=== PATIENT | male | born 1990 | race Caucasian/White ===

== ENCOUNTER 2016-02-28 18:44 | Emergency (ER) | payer SELFPAY ==
[~2016-02-28] VITALS: Ht 170.2 cm; Wt 66.3 kg
[~2016-02-28 18:44] MED LIST: Z.0.NO CURRENT MEDS
[2016-02-28 18:56] VITALS: BP 123/83; PULSE 96; RESP 16; TEMP 98.2; O2SAT 99
[2016-02-28] MEDS ORDERED: ERYTOIN10 RIGHT EYE (19:37)
[2016-02-28] MEDS ORDERED: IBUP800T23 PO (19:37)
--- NOTE | 2016-02-28 19:38 | PD ---
HPI Chief Complaint: Foreign Body Time Seen by Provider: 19:35 Travel History International Travel<30 days: No Contact w/Intl Traveler<30days: No Traveled to known affect area: No History of Present Illness HPI 25-year-old male presents to the emergency Department with complaint of a foreign body in his right eye. 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 He tried getting out earlier but hasn't come out. Denies fever, chills, nausea, vomiting. Reports vision is blurry. Reports clear drainage from his eye. Eyes painful. Has not taken any medications to alleviate his symptoms. Allergic to Darvocet. Denies significant past medical history. No other modifying factors or associated signs and symptoms. PFSH Past Medical History Medical History: Denies Significant Hx Diminished Hearing: No Tetanus Vaccination: < 5 Years Influenza Vaccination: No ?: Not Past Surgical History Surgical History: No Previous Surgery Social History Alcohol Use: No Tobacco Use: Yes (1ppd) Substance Use: No Allergies-Medications (Allergen,Severity, Reaction): Coded Allergies: Darvocet-N 100 (Verified Allergy, Severe, HIVES, 02/28/16) PT UNAWARE OF ALLERGY Reported Meds & Prescriptions Reported Meds & Active Scripts Active Ibuprofen 800 Mg Tab 800 Mg PO Q6HR PRN Erythromycin Opth Oint 5 Mg/Gm Oint 1 Applic RIGHT EYE QID 7 Days Reported No Current Meds (Miscellaneous Medication) Misc Review of Systems Except as stated in HPI: all other systems reviewed are Neg Physical Exam Narrative GENERAL: Well-nourished, well-developed male patient, in no acute distress SKIN: Warm and dry. HEAD: Atraumatic. Normocephalic. EYES: Pupils equal and round at 3 mm with brisk reaction. PERRLA. EOMI. right lid eversion with no foreign body noted. Right eye without scleral erythema and lid edema. No orbital tenderness, erythema or cellulitis. Right eye with photophobia. No consensual photophobia. No scleral icterus. Clear drainage. Go lamp exam reveals approximately 4 mm corneal abrasion at the 11 to 12:00 position. ENT: Mucosa pink and moist. Airway patent. NECK: Trachea midline. CARDIOVASCULAR: Regular rate. RESPIRATORY: No accessory muscle use. NEUROLOGICAL: Awake and alert. Oriented 3. No obvious cranial nerve deficits. Motor grossly within normal limits. Normal speech. PSYCHIATRIC: Appropriate mood and affect; insight and judgment normal. Data Data Last Documented VS Vital Signs Date Time Temp Pulse Resp B/P Pulse Ox O2 Delivery O2 Flow Rate FiO2 02/28/16 19:37 20 02/28/16 18:56 98.2 96 123/83 99 Orders Ibuprofen (Motrin) (02/28/16 19:45) Proparacaine 0.5% Opth Soln (Alcaine 0.5 (02/28/16 19:45) Mandatory Outpatient Referral (02/28/16 19:39) [facility] Medical Decision Making Medical Screen Exam Complete: Yes Emergency Medical Condition: Yes Medical Record Reviewed: Yes Differential Diagnosis Corneal abrasion, foreign body, corneal ulceration Narrative Course 25-year-old male physical exam and with lamp exam reveals corneal abrasion at the 11 to 12 o'clock position and measures approximately 4 mm. Ibuprofen administered in the ER. Patient does not have insurance. Mandatory referral ordered. Erythromycin ointment and ibuprofen prescribed for home. Instructed patient to follow up with ophthalmology tomorrow. Verbalized understanding and agreement and agreed to treatment plan. Patient is medically cleared and stable for discharge. Discussed reasons to return to the emergency department. Instructed patient to follow up with primary care provider. Patient agrees with treatment plan. The patients vital signs are stable and the patient is stable for outpatient follow-up and treatment. Patient discharged home, stable and in no acute distress. Diagnosis Primary Impression: Right corneal abrasion Qualified Code: S05.01XA - Right corneal abrasion, initial encounter Referrals: Mirna Mcclendon MD Primary Care Physician Patient Instructions: Corneal Abrasion (ED), General Instructions Additional Instructions: Ibuprofen or Tylenol as directed and as needed to reduce pain Do not patch the eye Do not rub the eye Refrigerated eye drops as needed to reduce pain Cool compresses to the eye as needed to reduce pain Follow-up with ophthalmology; Dr. Mirna Mcclendon, national sales information is provided in your discharge instructions; call to make an appointment in her office tomorrow Primary care provider Return to the emergency department immediately Med/Other Pt SpecificInfo: Prescription(s) given Scripts Ibuprofen 800 Mg [id number] Mg PO Q6HR PRN (PAIN) #30 TAB Ref 0 Prov:Dianelys Quezada EXHIBIT PREPARATOR 02/28/16 Erythromycin Opth Oint 5 Mg/Gm Oint1 Applic RIGHT EYE QID 7 Days Ref 0 Prov:Dianelys Quezada 02/28/16 Disposition: 01 DISCHARGE HOME Condition: Stable Dianelys Quezada Feb 28, 2016 19:38
[2016-02-28] MEDS ORDERED: IBUPROFEN 800 MG TAB PO ONE (19:45)
[2016-02-28] MEDS ORDERED: PROPARACAINE HCL 0.5% OPHT SOLN 15 ML BTL RIGHT EYE ONE (19:45)
== END 2016-02-28 20:10 | disposition home or self-care (01) ==
LOC: PHEFT 18:44
DX: S05.01XA Injury of conjunctiva and corneal abrasion without foreign body, right eye, initial encounter (principal); F17.200 Nicotine dependence, unspecified, uncomplicated; X58.XXXA Exposure to other specified factors, initial encounter
CPT/HCPCS: 99284

== ENCOUNTER 2016-07-06 20:21 | Emergency (ER) | payer SELFPAY ==
[~2016-07-06] VITALS: Ht 170.2 cm; Wt 62.0 kg
[~2016-07-06 20:21] MED LIST changes: +ERYTOIN10 RIGHT EYE; +IBUP800T23 PO
[2016-07-06 20:43] VITALS: BP 94/68; PULSE 91; RESP 12; TEMP 98.7; O2SAT 98
[2016-07-06] MEDS ORDERED: LIDOCAINE VISCOUS 2% SOLN 15 ML UDC PO STA (21:23)
[2016-07-06] MEDS ORDERED: PANTOPRAZOLE SOD 40 MG DELAYED RELEASE TAB PO ONE (21:30)
[2016-07-06] MEDS ORDERED: ALUMINUM/MAGNESIUM/SIMETH 30 ML CUP PO ONE (21:30)
--- NOTE | 2016-07-06 21:32 | PD ---
HPI Chief Complaint: Abdominal Pain Time Seen by Provider: 21:19 Travel History International Travel<30 days: No Contact w/Intl Traveler<30days: No Traveled to known affect area: No History of Present Illness HPI This 26-year-old male is complaining of epigastric pain. He says he had the pain for a couple of days. He's had diminished appetite. He is not using anti- inflammatory medications. He smokes cigars occasionally and does not drink alcohol. There has not been any vomiting PFSH Past Medical History Diminished Hearing: No Social History Alcohol Use: No Tobacco Use: Yes (1ppd) Substance Use: No Allergies-Medications (Allergen,Severity, Reaction): Coded Allergies: Darvocet-N 100 (Verified Allergy, Severe, HIVES, 07/06/16) PT UNAWARE OF ALLERGY Reported Meds & Prescriptions Reported Meds & Active Scripts Active No Active Prescriptions or Reported Medications Review of Systems General / Constitutional: No: Fever, Chills Eyes: No: Diploplia HENT: No: Headaches, Vertigo Cardiovascular: No: Chest Pain or Discomfort, Palpitations Respiratory: No: Cough, Shortness of Breath, Sneezing Gastrointestinal: Positive: Nausea, Abdominal Pain, No: Vomiting, Constipation Genitourinary: No: Urgency, Frequency Musculoskeletal: No: Myalgias Skin: No Rash, No Itching Endocrine: No: Heat Intolerance Hematologic/Lymphatic: No: Easy Bruising Physical Exam Narrative GENERAL: Well-developed male SKIN: Focused skin assessment warm/dry. HEAD: Atraumatic. Normocephalic. EYES: Pupils equal and round. No scleral icterus. No injection or drainage. ENT: No nasal bleeding or discharge. Mucous membranes pink and moist. NECK: Trachea midline. No JVD. CARDIOVASCULAR: Regular rate and rhythm. No murmur appreciated. RESPIRATORY: No accessory muscle use. Clear to auscultation. Breath sounds equal bilaterally. GASTROINTESTINAL: Abdomen soft, there is epigastric tenderness nondistended. Hepatic and splenic margins not palpable. MUSCULOSKELETAL: No obvious deformities. No clubbing. No cyanosis. No edema. NEUROLOGICAL: Awake and alert. No obvious cranial nerve deficits. Motor grossly within normal limits. Normal speech. PSYCHIATRIC: Appropriate mood and affect; insight and judgment normal. Data Data Last Documented VS Vital Signs Date Time Temp Pulse Resp B/P Pulse Ox O2 Delivery O2 Flow Rate FiO2 07/06/16 22:17 70 18 106/67 99 Room Air 07/06/16 20:43 98.7 Orders Complete Blood Count With Diff (07/06/16 21:23) Comprehensive Metabolic Panel (07/06/16 21:23) Lipase (07/06/16 21:23) Al-Mag Hy-Si 40-40-4 Mg/Ml Liq (Mag-Al P (07/06/16 21:30) Lidocaine 2% Viscous (Xylocaine 2% Visco (07/06/16 21:23) Pantoprazole (Protonix) (07/06/16 21:30) Labs Laboratory Tests Test 07/06/16 22:00 White Blood Count 4.2 TH/MM3 Red Blood Count 4.61 MIL/MM3 Hemoglobin 14.9 GM/DL Hematocrit 42.8 % Mean Corpuscular Volume 92.8 FL Mean Corpuscular Hemoglobin 32.2 PG Mean Corpuscular Hemoglobin 34.7 % Concent Red Cell Distribution Width 12.1 % Platelet Count 131 TH/MM3 Mean Platelet Volume 7.9 FL Neutrophils (%) (Auto) 51.2 % Lymphocytes (%) (Auto) 34.2 % Monocytes (%) (Auto) 12.7 % Eosinophils (%) (Auto) 1.1 % Basophils (%) (Auto) 0.8 % Neutrophils # (Auto) 2.3 TH/MM3 Lymphocytes # (Auto) 1.4 TH/MM3 Monocytes # (Auto) 0.5 TH/MM3 Eosinophils # (Auto) 0.0 TH/MM3 Basophils # (Auto) 0.0 TH/MM3 CBC Comment DIFF FINAL Differential Comment Sodium Level 139 MEQ/L Potassium Level 3.5 MEQ/L Chloride Level 102 MEQ/L Carbon Dioxide Level 28.5 MEQ/L Anion Gap 9 MEQ/L Blood Urea Nitrogen 13 MG/DL Creatinine 1.20 MG/DL Estimat Glomerular Filtration 72 ML/MIN Rate Random Glucose 100 MG/DL Calcium Level 8.7 MG/DL Total Bilirubin 0.5 MG/DL Aspartate Amino Transf 20 U/L (AST/SGOT) Alanine Aminotransferase 22 U/L (ALT/SGPT) Alkaline Phosphatase 99 U/L Total Protein 7.4 GM/DL Albumin 3.8 GM/DL Lipase 167 U/L [facility] Medical Decision Making Medical Screen Exam Complete: Yes Emergency Medical Condition: Yes Medical Record Reviewed: Yes Differential Diagnosis Differential includes gastritis, ulcer, pancreatitis, Narrative Course Lab work shows a normal white count. His liver function tests are normal as is lipase. Symptoms are consistent with gastritis, possible ulcer. I will recommend protonic's Diagnosis Primary Impression: Gastritis Qualified Code: K29.00 - Acute gastritis without hemorrhage, unspecified gastritis type Scripts Pantoprazole (Protonix)40 Mg Tab40 Mg PO DAILY #30 TAB Ref 0 Prov:Edd Chapin MD 07/06/16 Disposition: DISCHARGE HOME Condition: Stable Edd Chapin MD July 06, 2016 21:32
[2016-07-06 22:10] LABS: AUTOMATED NEUTROPHIL # 2.3 TH/MM3 (1.8-7.7); BASOPHIL % 0.8 % (0.0-2.0); EOSINOPHIL % 1.1 % (0.0-4.0); HEMATOCRIT 42.8 % (39.0-51.0); HEMO FLAGS DIFF FINAL; LYMPH % 34.2 % (9.0-44.0); LYMPHOCYTE # 1.4 TH/MM3 (1.0-4.8); MEAN CELL VOLUME 92.8 FL (80.0-100.0); MEAN CORPUSCULAR HEMOGLOBIN 32.2 PG (27.0-34.0); MEAN CORPUSCULAR HGB CONC 34.7 % (32.0-36.0); MONO % 12.7 % (0.0-8.0); NEUT % 51.2 % (16.0-70.0); PLATELET COUNT 131 TH/MM3 (150-450); RED BLOOD COUNT 4.61 MIL/MM3 (4.50-5.90); RED CELL DISTRIBUTION WIDTH 12.1 % (11.6-17.2); WHITE BLOOD COUNT 4.2 TH/MM3 (4.0-11.0)
[2016-07-06 22:17] VITALS: BP 106/67; PULSE 70; RESP 18; O2SAT 99
[2016-07-06 22:19] LABS: CHLORIDE 102 MEQ/L (98-107); POTASSIUM 3.5 MEQ/L (3.5-5.1); SODIUM (NA) 139 MEQ/L (136-145)
[2016-07-06 22:22] LABS: ANION GAP 9 MEQ/L (5-15); BICARBONATE 28.5 MEQ/L (21.0-32.0); BLOOD UREA NITROGEN 13 MG/DL (7-18)
[2016-07-06 22:25] LABS: AST (GOT) 20 U/L (15-37); GLOMERULAR FILTRATION RATE 72 ML/MIN (>89)
[2016-07-06 22:26] LABS: TOTAL BILIRUBIN ADULT 0.5 MG/DL (0.2-1.0)
[2016-07-06 22:28] LABS: ALKALINE PHOSPHATASE 99 U/L (45-117)
[2016-07-06 22:30] LABS: ALT (GPT) 22 U/L (12-78)
[2016-07-06] MEDS ORDERED: PROT40TA PO (22:33)
[2016-07-06 22:43] VITALS: BP 108/64
== END 2016-07-06 22:44 | disposition home or self-care (01) ==
LOC: PHED 20:21
DX: K29.00 Acute gastritis without bleeding (principal); F17.200 Nicotine dependence, unspecified, uncomplicated
CPT/HCPCS: 80053; 83690; 85025; 99284